=== PATIENT | female | born 1995 | race Caucasian/White ===

== ENCOUNTER → 2023-09-16 16:01 | Outpatient (CLI) | payer SELFPAY ==
--- NOTE | 2023-09-16 16:02 | DI.US.S_ITS ---
PROCEDURE: US PELVIC COMPLETE INDICATIONS: AUB with IUD TECHNIQUE: Real-time scanning was performed of the pelvic organs, with image documentation. Additional endovaginal scanning was necessary due to incomplete visualization of the adnexal and endometrial structures by transabdominal scanning. COMPARISON: [facility], US, US PELVIC COMPLETE, 04/29/2020, 11:56. FINDINGS: Uterus: Uterus is retroverted and normal in size at 8.0 x 5.3 x 3.9 cm. The myometrium is homogeneous. The endometrium measures 2 mm combined thickness. IUD is visualized. Ovaries: The right ovary measures 4.2 x 3.1 x 2.4 cm, with a calculated ovarian volume of 16.3 cc. The left ovary measures 3.8 x 2.4 x 2.6 cm, with a calculated ovarian volume of 12.4 cc. Simple right ovarian cyst is present measuring 2.3 cm. Other: No pathologic free abdominal or pelvic fluid. IMPRESSION: Simple right ovarian cyst. We strive to produce accurate, complete, and clear reports of imaging services. To assist us in improving patient care, this report was composed using standard report templates and voice recognition software. Therefore, it may contain abnormal punctuation, insertions and/or omissions. Occasional wrong-word or sound-alike substitutions may occur. Though we review the report and make efforts to correct it, we do recommend that the report be read carefully in proper context to recognize any text inaccuracies. Dictated by: Adriane Yee M.D. on 09/18/2023 at 12:53 Approved by: Adriane Yee M.D. on 09/18/2023 at 12:58
== END ==
PROVIDERS: PCP Physician Assistant Medical; Referring Provider Obstetrics & Gynecology; Visit Provider Obstetrics & Gynecology
DX: N93.9 Abnormal uterine and vaginal bleeding, unspecified (principal); N83.291 Other ovarian cyst, right side; Z97.5 Presence of (intrauterine) contraceptive device
CPT/HCPCS: 76830; 76856

== ENCOUNTER → 2023-11-16 16:04 | Outpatient (CLI) | payer OTHER, SELFPAY | PROVIDERS: PCP Physician Assistant Medical; Referring Provider Specialist; Visit Provider Specialist | DX: Z11.3 Encounter for screening for infections with a predominantly sexual mode of transmission (principal) | CPT/HCPCS: 87491; 87563; 87591 ==